=== PATIENT | female | born 1975 | race Two or more races ===

== ENCOUNTER 2023-05-24 18:19 | Emergency (ER) | payer MEDICAID ==
[~2023-05-24] VITALS: Ht 160 cm; Wt 80.7 kg
[2023-05-24 18:31] VITALS: BP 117/64; TEMP 98.2; O2SAT 98
== END 2023-05-24 19:32 | disposition home or self-care (01) ==
LOC: ER 18:33
DX: R00.2 Palpitations (principal); F41.9 Anxiety disorder, unspecified; Z88.8 Allergy status to other drugs, medicaments and biological substances